=== PATIENT | male | born 1940 | race Caucasian/White ===

== ENCOUNTER → 2017-01-29 | Outpatient (CLI) | payer MEDICARE, BC ==
[~2017-01-29] MED LIST: ALEN70TA15 PO; AMIT-46 PO; ASPI81TA2 PO; ATOR10TA20 PO; CARB-47 PO; CARV3.1227 PO; ISOS60TA4 PO; LINA145C PO; LISI-625 PO; MULT-806 PO; OMEP-29 PO; POLY17PO6 PO; SULF500T27 PO
== END ==
LOC: IMA 13:36
PROVIDERS: ATTEND Family Medicine
DX: M85.80 Other specified disorders of bone density and structure, unspecified site (principal); M81.0 Age-related osteoporosis without current pathological fracture; Z87.828 Personal history of other (healed) physical injury and trauma